=== PATIENT | female | born 1960 | race Two or more races ===

== ENCOUNTER 2016-12-10 10:36 | Emergency (ER) | payer MEDICAID ==
[2016-12-10 10:58] VITALS: TEMP 98.4
--- NOTE | 2016-12-10 11:16 | EDPHY ---
H & P Stated Complaint: LLQ ABD PAIN AND FLANK PAIN Time Seen by Provider: 12/10/16 10:51 HPI/ROS: CC: Abdominal pain and Diarrhea HPI: medically stable 56 yo [place] visiting [place], as she has family here, has been here for almost a week, will remain for another week, as she has some job interviews this next week. Started with mild bilateral LQ pain approximately 36 hours ago in the evening. THis has persisted, steady, not wave like, slowly getting slightly worse to the point where the pain is moderately severe. No particular home RX, nor prior hx of this. TRHough she tends to have loose stools in the first place, yesterday was unusual as she had 6 episodes of particuarly loose almost liquid stools - but none today. THe stools were not bloody or black. NO tenesmus. Over the past 24 hours the pain did settle into the LLQ, and only minimally went into the flank. No dysuria. NOthing improved pain. Not worse with walking, bumps in road or standing up straight. She notes pain is a steady ache. SHe has had >50 yo colonoscopy without evidence of CA. RF for DIarrhea: Also, no known exposure. Travel: only domestically Bad Food or Water sources: NO Recent antibiotics: NO Others ill with similar Sx: NO Duration of symptoms more than 3 days: only 2nd day Prior C. Diff. NO ROS: Constitutional - no fevers or chills Eyes - no discharge ENT - no sore throat. Cardiovascular - no chest pain, shortness of breath, or difficulty breathing. Respiratory - No Shortness of breath, cough, phlegm, wheezing chest pain. GI - No melena, hematochezia, or bright red blood per rectum. - no dysuria or frequency. No hematuria or flank pain. Musculoskeletal - no back pain Lymph - no adenopathy Skin no rash. Source: Patient - Personal History Current Tetanus Diphtheria and Acellular Pertussis (TDAP): Yes - Medical/Surgical History Hx Asthma: Yes Hx Chronic Respiratory Disease: No Hx Diabetes: No Hx Cardiac Disease: No Hx Renal Disease: No Hx Cirrhosis: No Hx Alcoholism: No Hx HIV/AIDS: No Hx Splenectomy or Spleen Trauma: No Other PMH: ASTHMA - Family History Significant Family History: No pertinent family hx - Social History Smoking Status: Never smoked Alcohol Use: None Drug Use: None - Physical Exam Exam: Exam: General Appearance: Obese, white female. Alert, good color, no diaphoresis, nontoxic. Normal phonation. No respiratory distress. Good eye contact. reports pain is pretty bad, though not diaphoretic nor fidgety. Eyes: Pupils equal and round no pallor or injection. No icterus ENT, Mouth: Mucous membranes moist. Neck: No adenopathy. Respiratory: There are no retractions, lungs are clear to auscultation. Cardiovascular: Regular rate and rhythm. Abdomen: Soft tender more on the LLQ then LUQ, without CVAT. Some rebound in the LLQ, no gaurdign. Bowel sounds normal. Neurological: Ox3. No motor weakness. Sensation intact. Gait nl. Skin: Warm and dry, no rashes. Musculoskeletal: No joint swelling. Extremities: No edema. Psychiatric: Normal Affect. Constitutional: Initial Vital Signs Temperature (C) 36.9 C 12/10/16 10:56 Heart Rate 70 12/10/16 10:56 Respiratory Rate 16 12/10/16 10:56 Blood Pressure 160/86 H 12/10/16 10:56 O2 Sat (%) 98 12/10/16 10:56 O2 Delivery Mode Room Air O2 (L/minute) 2 Allergies/Adverse Reactions: No Known Allergies Allergy (Unverified 12/10/16 11:23) Home Medications: Medication Instructions Recorded Dicyclomine [Bentyl 10 MG (*)] 10 mg PO QID PRN #15 cap 12/10/16 Medical Decision Making - Diagnostics Imaging Results: CT of abd/Pelvis: Read by and d/w radioloist as well as I looked at the imagtes on the PACS system. with IV contrast Good windows, No excessive stool. No fat stranding near the colon and although there were indeed stom diverticula , there was no evidence of -itis. Further, appendix seen and normal. Imaging: Discussed imaging studies w/ pot fluxer Radiologist ED Course/Re-evaluation: On initial evaluation we discussed pain Rx and she opted for Toradol. She did drive herself, but also noted that her sone could come get her, being only 3 miles away. I made her aware that stronger medications would necessitate that. Further, as she had some anorexia, ginven IV Zofrna Given a L of NS for volume depletion and anticiaption of the need for a CT. I then reexamined her, no change. She really did not feel any better. As the pain was steady, we discuseed further Pain treatment and she then received 50 mg of Fentanyl, with plans for this to be folowed by 4 mg of IV morphoine, evidently not given as she di not handle the Fentanyl all that well in the first place. Though this did help it certainly did not releive all of her pain. Intial urine appeared contamintated. Even after the L of fluid there was some time before a second specimen was obtained. THis showed no signs of infecdtion. Given the focality of the abdominal pain and the rebound, CT ordered. The ultimatley read by and discussed with the Radiologist By phone, as well as reviewing the images. Good windows, No excessive stool. No fat stranding near the colon and although there were indeed stom diverticula, there was no evidence of -itis. Further, appendix seen and normal. Labs showed nl UA, CBC and Electrolytes. All in all she did not feel much better and the w/u is negative. I did consider CT neg diverticulitis, though given her lack of any stranding on the CT , this is rather unlikely. We discussed getting a stool as dysentery remained a possibility, thus ordered and cups to go set up with the RN. Explained at length need for further evaluation if this does not resolve in next day or two, or return if worsens or fever. We also discussed pain treatment with Bentyl and Tyelnol, warned. Differential Diagnosis: My DDX Abdominal Pain Differential diagnosis includes but is not limited to: Aortic Aneurysm with leak or rupture, Cholecystitis, Appendicitis, Pancreatitis , or Diverticulitis or Renal Colic due to Ureterolithiasis. - Data Points Laboratory Results: Laboratory Results 12/10/16 11:45 12/10/16 11:45 Medications Given: Discontinued Medications Fentanyl (Sublimaze) 50 mcg IVP EDNOW ONE Stop: 12/10/16 12:29 Last Admin: 12/10/16 12:35 Dose: 50 mcg Sodium Chloride (Ns) 1,000 mls @ 0 mls/hr IV ONCE ONE PRN Reason: Wide Open Stop: 12/10/16 11:38 Last Admin: 12/10/16 11:40 Dose: 1,000 mls Sodium Chloride (Ns) 500 mls @ 500 mls/hr IV ONCE ONE Stop: 12/10/16 15:59 Last Admin: 12/10/16 12:45 Dose: 500 mls Ketorolac Tromethamine (Toradol) 15 mg IVP EDNOW ONE Stop: 12/10/16 11:38 Last Admin: 12/10/16 11:45 Dose: 15 mg Morphine Sulfate (Morphine) 4 mg IVP EDNOW ONE Stop: 12/10/16 12:28 Last Admin: 12/10/16 13:14 Dose: Not Given Ondansetron HCl (Zofran) 4 mg IVP EDNOW ONE Stop: 12/10/16 11:38 Last Admin: 12/10/16 11:45 Dose: 4 mg Departure - Departure Disposition: Home, Routine, Self-Care Clinical Impression: Acute abdominal pain, Diarrhea Condition: Good Instructions: Loperamide (By mouth), Acute Diarrhea (ED), Abdominal Pain (ED) Additional Instructions: When you are able, submit a stool specimen to [facility], on [facility] in [facility]. In the meantime take Tylenol and Bentyl for the discomfort Continue to take fluids and a normal diet as tolerated. [place] foods would be best but solid food is best, avoiding juices. Referrals: ELISSA,UNKNOWN [Other] - As per Instructions Pretty Whalen MD [Medical Doctor] - 2-3 days, if not improved Prescriptions: Dicyclomine [Bentyl 10 MG (*)] 10 mg PO QID PRN #15 cap PRN Reason: abdominal pain and cramps
[2016-12-10] MEDS ORDERED: ONDANSETRON 4 MG/2 ML VIAL IVP ONE (11:37)
[2016-12-10] MEDS ORDERED: KETOROLAC 30 MG/1 ML SDV IVP ONE (11:37)
[2016-12-10] MEDS ORDERED: NS 1,000 ML IV ONE (11:37)
[2016-12-10] MEDS ORDERED: IOPAMIDOL (ISOVUE-300) 100 ML BTL ONE (11:54)
[2016-12-10 11:58] LABS: COLOR YELLOW; LEUKOCYTE ESTERASE,URINE 1+ (NEGATIVE); NITRITE,URINE NEGATIVE (NEGATIVE); PH,URINE 5.5 (5.0-7.5)
[2016-12-10 12:24] LABS: AMORPHOUS 2+ /hpf (NONE-1+); BACTERIA 2+ /hpf (NONE SEEN); MUCUS 1+ /lpf (NONE-1+); RENAL EPITHELIAL CELLS OCCASIONAL /hpf (NONE SEEN); WBC,URINE 15-25 /hpf (0-3)
[2016-12-10] MEDS ORDERED: fentaNYL 100 MCG/2 ML INJ IVP ONE (12:28)
[2016-12-10 12:32] LABS: % IMMATURE GRANULYOCYTES 0.3 % (0.0-1.1); ABSOLUTE IMMATURE GRANULOCYTES 0.02 10^3/uL (0.00-0.10); ADD DIFF? NO; ADD MORPH? NO; ADD SCAN? NO; ATYPICAL LYMPHOCYTE FLAG 10 (0-99); FRAGMENT RBC FLAG 0 (0-99); HEMOGLOBIN 14.8 g/dL (12.6-16.3); LEFT SHIFT FLG 0 (0-99); LIPEMIA HEMOLYSIS FLAG 90 (0-99); MEAN CELL HEMOGLOBIN 31.8 pg (27.9-34.1); MEAN CELL HEMOGLOBIN CONCENTR. 34.4 g/dL (32.4-36.7); MEAN CELL VOLUME 92.5 fL (81.5-99.8); MEAN PLATELET VOLUME 11.8 fL (8.7-11.7); PLATELET CLUMPS FLAG 0 (0-99); PLATELET COUNT 251 10^3/uL (150-400); RED BLOOD CELL COUNT 4.65 10^6/uL (4.18-5.33); RED CELL DISTRIBUTION WIDTH 12.8 % (11.5-15.2)
[2016-12-10 12:38] LABS: ANION GAP 15 mEq/L (8-16); CALCIUM 9.7 mg/dL (8.5-10.4); CARBON DIOXIDE 21 mEq/l (22-31); CHLORIDE 106 mEq/L (97-110); CREATININE 0.9 mg/dL (0.6-1.0); GLOMERULAR FILTRATION RATE > 60; GLUCOSE 105 mg/dL (70-100); POTASSIUM 4.5 mEq/L (3.5-5.2); SODIUM 142 mEq/L (134-144)
[2016-12-10 12:52] VITALS: RESP 16
[2016-12-10 13:52] LABS: COLOR YELLOW; LEUKOCYTE ESTERASE,URINE NEGATIVE (NEGATIVE); NITRITE,URINE NEGATIVE (NEGATIVE)
[2016-12-10 14:34] VITALS: O2SAT 95
[2016-12-10 14:34] LABS: BACTERIA TRACE /hpf (NONE SEEN); MUCUS TRACE /lpf (NONE-1+); RBC,URINE NONE SEEN /hpf (0-3)
[2016-12-10 14:56] VITALS: BP 138/95
[2016-12-10 14:58] VITALS: PULSE 75
[2016-12-10] MEDS ORDERED: NS 500 ML IV ONE (15:00)
== END 2016-12-10 15:27 | disposition home or self-care (01) ==
LOC: CED 10:36
DX: R10.0 Acute abdomen (principal); J45.909 Unspecified asthma, uncomplicated
CPT/HCPCS: 74177-PO; 80048-PO; 81003-PO; 81015-PO; 85025-PO; 96374; J1885; J2405; J3010; Q9967

== ENCOUNTER 2017-06-15 00:35 | Emergency (ER) | payer MEDICAID ==
[2017-06-15 00:43] VITALS: BP 165/96; PULSE 74; RESP 22; TEMP 97.3; O2SAT 95
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
== END 2017-06-15 01:15 | disposition home or self-care (01) ==
LOC: CED 00:35
PROC: 3E0X3BZ Introduction of Anesthetic Agent into Cranial Nerves, Percutaneous Approach (ICD-10-PCS; principal; 2017-06-15)
DX: K04.7 Periapical abscess without sinus (principal)

== ENCOUNTER 2017-07-29 16:01 | Emergency (ER) | payer MEDICAID, OTHER ==
[2017-07-29 16:08] VITALS: TEMP 98.6
[2017-07-29] MEDS ORDERED: ASPIRIN 81 MG CHEWABLE TAB PO ONE (16:14)
--- NOTE | 2017-07-29 16:22 | CPEKG ---
Heart Rate: 71 RR Interval: 845 P-R Interval: 180 QRSD Interval: 94 QT Interval: 404 QTC Interval: 439 P [place]: 34 QRS [place]: 6 T Wave [place]: 22 EKG Severity - NORMAL ECG - EKG Impression: SINUS RHYTHM Electronically Signed By: Roberto Zurita 29-Jul-2017 20:44:05
[2017-07-29] MEDS ORDERED: KETOROLAC 15 MG/1 ML SDV IVP ONE (16:28)
[2017-07-29] MEDS ORDERED: NS 500 ML IV ONE (16:29)
--- NOTE | 2017-07-29 16:33 | EDPHY ---
H & P Stated Complaint: right side sternal chest pain with SOB 3 days Time Seen by Provider: 07/29/17 16:14 HPI/ROS: This patient complains of pleuritic right-sided chest pain, 3 days duration. The onset was abrupt. The intensity is 7/10. Pain is worse with a deep breath. She has never had this pain before. She reports associated bloody sputum/hemoptysis described as dark red in color. She has mild associated shortness of breath and rare cough. She has been taking ibuprofen with partial relief. Her last dose was at her mg 5:00 a.m. this morning. She drove herself here by private vehicle for evaluation of her symptoms. ROS: No fevers or chills. No significant fatigue. HEENT: No recent URI symptoms or other complaints Pulmonary: As per HPI. Cardiovascular: No heart palpitations. She has chronic leg pain she attributes to spending 12 hr [place] feet [place] the [place]. No new leg pain. No heart palpitations. No new leg edema. GI: No abdominal pain. No nausea or vomiting. Endocrine: No diaphoresis or other complaints : No complaints Integumentary: No rash Neuro: No numbness tingling weakness. Complete review of symptoms otherwise negative Source: Patient Exam Limitations: No limitations - Personal History Current Tetanus Diphtheria and Acellular Pertussis (TDAP): Yes Tetanus Vaccine Date: 2011 - Medical/Surgical History Hx Asthma: Yes Hx Chronic Respiratory Disease: No Hx Diabetes: No Hx Cardiac Disease: No Hx Renal Disease: No Hx Cirrhosis: No Hx Alcoholism: No Hx HIV/AIDS: No Hx Splenectomy or Spleen Trauma: No Other PMH: ASTHMA, kidney stones - Family History Significant Family History: No pertinent family hx - Social History Smoking Status: Never smoked Alcohol Use: Rarely Drug Use: None Additional Social History: She is a general ii farmworker - Physical Exam Exam: Vital signs are normal with exception of an O2 sat of 94% mild hypertension 163/ 86 General Appearance: Alert, no distress. Eyes: Pupils equal and round no pallor or injection. ENT, Mouth: Mucous membranes moist. Respiratory: There are no retractions, lungs are clear to auscultation. No chest wall tenderness. Cardiovascular: Regular rate and rhythm. No murmur gallop rub. No JVD. No peripheral edema. Gastrointestinal: Abdomen is soft and nontender, no masses, bowel sounds normal. Neurological: GCS 15 with no focal deficits. Skin: Warm and dry, no rashes. Musculoskeletal: Neck is supple nontender. Extremities are symmetrical, full range of motion. Psychiatric: Mood and affect normal. DIFFERENTIAL DIAGNOSIS: After history and physical exam differential diagnosis was considered for pulmonary embolism, pulmonary tumor, pneumonia, bronchitis, mi Constitutional: Initial Vital Signs Temperature (C) 37 C 07/29/17 16:04 Heart Rate 74 07/29/17 16:04 Respiratory Rate 16 07/29/17 16:04 Blood Pressure 163/86 H 07/29/17 16:04 O2 Sat (%) 94 07/29/17 16:04 O2 Delivery Mode Room Air O2 (L/minute) 2 Allergies/Adverse Reactions: No Known Allergies Allergy (Unverified 12/10/16 11:23) Home Medications: Medication Instructions Recorded Ibuprofen [Motrin (*)] 600 mg PO TID #15 tab 06/15/17 Albuterol Hfa Anes Only [Proair 2 puffs IH Q4 PRN #1 mdi 07/29/17 Hfa Icu (*)] Azithromycin [Zithromax] 250 mg PO DAILY #6 tab 07/29/17 Medical Decision Making - Diagnostics EKG Interpretation: 12 lead EKG indication pleuritic chest pain rule out right heart strain, myocardial ischemia or other abnormalities Performed at 4:19 p.m. Sinus rhythm at 71 Intervals: Normal throughout [place]: Normal throughout ST segments: Normal throughout Overall assessment: Normal EKG Imaging Results: Imaging Impressions Chest X-Ray 07/29/17 17:02 Impression: 1. Normal except for minimal left basilar atelectasis. 2. No explanation for right-sided pain. Chest/Thorax CTA 07/29/17 17:31 Impression: 1. No pulmonary embolism identified to the segmental level. 2. Wall thickening of the central airways bilaterally which is nonspecific but may reflect bronchitis and/or fluid status. Dr. Mckee discussed these findings by telephone with ER Dr. CRISTAL MANZO on 07/29/2017 at 18:45 hours. Two view chest x-ray: Normal by my interpretation Imaging: Discussed imaging studies w/ call center director Radiologist (CT scan), I viewed and interpreted images myself (Chest x-ray) ED Course/Re-evaluation: IV, monitor, aspirin, 500 cc normal saline bolus Toradol 15 mg IV with partial relief of symptoms. I spoke with Dr. Gunnar Sims, maintenance and repair worker frontload driver regarding this patient he recommends proceeding with CT angio despite the normal D-dimer given her symptoms concerning for potential PE of pleuritic pain with mop this this. CT angio chest rule out pulmonary embolism. There was some thickening of bronchi suggestive of bronchitis. Given patient's occasional cough and dark bloody sputum will cover her for bronchitis as per conversation with Dr. Sims with Zithromax, albuterol and follow up with pulmonology for any ongoing symptoms despite the treatment plan. It is likely that she has bleeding from a small vein year old that ruptured a bronchi. I counseled regarding this. After workup today, I do not find evidence of pulmonary embolism, coronary syndrome, pneumothorax, pneumonia or other concerning findings. However the patient understands need to return emergency department should she have any worsening of her existing symptoms are onset of new symptoms despite the treatment plan - Data Points Laboratory Results: Laboratory Results 07/29/17 16:38 07/29/17 16:38 07/29/17 07/29/17 07/29/17 16:38 16:38 16:38 WBC 6.43 10^3/uL 10^3/uL (3.80-9.50) RBC 4.13 10^6/uL L 10^6/uL (4.18-5.33) Hgb 13.1 g/dL g/dL (12.6-16.3) Hct 38.0 % % (38.0-47.0) MCV 92.0 fL fL (81.5-99.8) MCH 31.7 pg pg (27.9-34.1) MCHC 34.5 g/dL g/dL (32.4-36.7) RDW 12.0 % % (11.5-15.2) Plt Count 225 10^3/uL 10^3/uL (150-400) MPV 10.7 fL fL (8.7-11.7) Neut % (Auto) 49.8 % % (39.3-74.2) Lymph % (Auto) 37.9 % % (15.0-45.0) [place] % (Auto) 6.2 % % (4.5-13.0) Eos % (Auto) 5.3 % % (0.6-7.6) Baso % (Auto) 0.6 % % (0.3-1.7) Nucleat RBC Rel Count 0.0 % % (0.0-0.2) Absolute Neuts (auto) 3.20 10^3/uL 10^3/uL (1.70-6.50) Absolute Lymphs (auto) 2.44 10^3/uL 10^3/uL (1.00-3.00) Absolute Monos (auto) 0.40 10^3/uL 10^3/uL (0.30-0.80) Absolute Eos (auto) 0.34 10^3/uL 10^3/uL (0.03-0.40) Absolute Basos (auto) 0.04 10^3/uL 10^3/uL (0.02-0.10) Absolute Nucleated RBC 0.00 10^3/uL 10^3/uL (0-0.01) Immature Gran % 0.2 % % (0.0-1.1) Immature Gran # 0.01 10^3/uL 10^3/uL (0.00-0.10) PT 13.2 SEC SEC (12.0-15.0) INR 1.01 (0.83-1.16) APTT 27.5 SEC SEC (23.0-38.0) D-Dimer 0.33 ug/mLFEU ug/mLFEU (0.00-0.50) Sodium 142 mEq/L mEq/L (135-145) Potassium 3.4 mEq/L L mEq/L (3.5-5.2) Chloride 102 mEq/L mEq/L (97-110) Carbon Dioxide 22 mEq/l mEq/l (22-31) Anion Gap 18 mEq/L H mEq/L (8-16) BUN 16 mg/dL mg/dL (7-23) Creatinine 0.9 mg/dL mg/dL (0.6-1.0) Estimated GFR > 60 Glucose 105 mg/dL H mg/dL (70-100) Calcium 9.4 mg/dL mg/dL (8.5-10.4) Troponin I < 0.012 ng/mL ng/mL (0.000-0.034) Medications Given: Discontinued Medications Aspirin (Aspirin) 324 mg PO EDNOW ONE Stop: 07/29/17 16:15 Last Admin: 07/29/17 16:31 Dose: 324 mg Azithromycin (Zithromax) 500 mg PO EDNOW ONE PRN Reason: Protocol Stop: 07/29/17 19:08 Last Admin: 07/29/17 19:11 Dose: 500 mg Sodium Chloride (Ns) 500 mls @ 0 mls/hr IV ONCE ONE; Wide Open PRN Reason: Protocol Stop: 07/29/17 16:30 Last Admin: 07/29/17 16:52 Dose: 500 mls Ketorolac Tromethamine (Toradol) 15 mg IVP EDNOW ONE Stop: 07/29/17 16:29 Last Admin: 07/29/17 16:50 Dose: 15 mg Departure - Departure Disposition: Home, Routine, Self-Care Clinical Impression: Pleuritic chest pain, Hemoptysis, Bronchitis Condition: Good Instructions: Albuterol (By breathing), Azithromycin (By mouth), Pleurisy (ED) , Hemoptysis (ED) Additional Instructions: Diagnosis: 1. Pleuritic chest pain 2. Hemoptysis 3. Possible bronchitis Your CT scan today ruled out blood clot in the lung. Also no tumor. You have mild thickening of the airways most likely consistent with bronchitis any may have a small vein that ruptured causing some of the blood in her sputum. Usually this bleeding resolved after a few days. Plan: Humidifier Albuterol inhaler for cough, wheeze or shortness of breath Zithromax antibiotic Ibuprofen Tylenol for pain as needed. Follow up with Dr. Gunnar Sims-maintenance and repair worker if he have any ongoing symptoms despite treatment plan. Return to the emergency department for any significant worsening despite the treatment Referrals: NONE *PRIMARY CARE P,. [Unknown] - As per Instructions Gunnar Sims MD [Medical Doctor] - As per Instructions Caro Waller MD [Medical Doctor] - As per Instructions Stand Alone Forms: Work Excuse Prescriptions: Albuterol Hfa Anes Only [Proair Hfa Icu (*)] 2 puffs IH Q4 PRN #1 mdi PRN Reason: Wheezing Azithromycin [Zithromax] 250 mg PO DAILY #6 tab
[2017-07-29 16:44] LABS: PLATELET COUNT 225 10^3/uL (150-400)
[2017-07-29 16:56] LABS: INR 1.01 (0.83-1.16); PROTIME(PATIENT) 13.2 SEC (12.0-15.0)
[2017-07-29] MEDS ORDERED: IOPAMIDOL (ISOVUE 370) 100 ML BTL IV ONE (17:34)
[2017-07-29 18:32] VITALS: RESP 18
[2017-07-29] MEDS ORDERED: AZITHROMYCIN 250 MG TAB PO ONE (19:07)
[2017-07-29 19:24] VITALS: BP 138/84; PULSE 66; O2SAT 94
== END 2017-07-29 19:22 | disposition home or self-care (01) ==
LOC: CED 16:01
PROC: 3E0337Z Introduction of Electrolytic and Water Balance Substance into Peripheral Vein, Percutaneous Approach (ICD-10-PCS; principal; 2017-07-29)
DX: R07.81 Pleurodynia (principal); R04.2 Hemoptysis; J20.9 Acute bronchitis, unspecified; J45.909 Unspecified asthma, uncomplicated; E86.9 Volume depletion, unspecified
CPT/HCPCS: 71046-PO; 71275-PO; 80048-PO; 84484-PO; 85025-PO; 85378-PO; 85610-PO; 85730-PO; 96374; J1885; Q9967